=== PATIENT | female | born 1970 | race Caucasian/White ===

== ENCOUNTER 2017-04-28 20:10 | Emergency (ER) | payer MEDICAID ==
[2017-04-28] MEDS ORDERED: Albuterol/Ipratropium 3.0-0.5 MG/3 ML Neb Soln NEB ONE (20:49)
[2017-04-28] MEDS ORDERED: Budesonide 0.5 MG/2 ML Neb Susp NEB ONE (20:50)
[2017-04-28] MEDS ORDERED: methylPREDNISolone Sodium Succinate 125 MG/2 ML SDV IVPUSH ONE (20:50)
[2017-04-28] MEDS ORDERED: methylPREDNISolone Sodium Succinate 125 MG/2 ML SDV IM ONE (20:52)
[2017-04-28 21:46] VITALS: BP 157/90
--- NOTE | 2017-04-28 21:50 | EDM.PDOC ---
ED HPI GENERAL MEDICAL PROBLEM - General Chief Complaint: Respiratory Problem Stated Complaint: SOB Time Seen by Provider: 04/28/17 20:41 Source of Information: Reports: Patient History Limitations: Reports: No Limitations - History of Present Illness INITIAL COMMENTS - FREE TEXT/NARRATIVE: This patient comes in with an asthma exacerbation. She has long-standing asthma. She's been moving lately and thinks it may have sort of exacerbated it. 2 weeks ago she finished an 18 day course of prednisone. So presently she is taking [address] and then albuterol. She uses the albuterol at 2 AM this morning and then again at 3 PM but hasn't used more than that. She said she is very short of breath right now. 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 ED EXAM, GENERAL - Physical Exam Exam: See Below Exam Limited By: No Limitations General Appearance: Alert, WD/WN, Mild Distress Eye Exam: Bilateral Eye: Normal Inspection Throat/Mouth: Normal Inspection Respiratory/Chest: Other (Scattered wheezes in all paige with decreased air movement there is some prolonged expiration.) Cardiovascular: Regular Rate, Rhythm, No Murmur Extremities: Normal Inspection Neurological: Alert, Oriented Psychiatric: Normal Affect Skin Exam: Warm, Dry Course - Vital Signs Last Recorded V/S: Last Vital Signs Temp 37.4 C 04/28/17 20:34 Pulse 79 04/28/17 20:34 Resp 20 04/28/17 20:34 BP 162/94 H 04/28/17 20:34 Pulse Ox 98 04/28/17 20:34 - Orders/Labs/Meds Orders: Active Orders 24 hr Category Date Time Status RT Aerosol Therapy [RC] ASDIRECTED Care 04/28/17 20:50 Active Meds: Medications Discontinued Medications Generic Name Dose Route Start Last Admin Trade Name Jairq PRN Reason Stop Dose Admin Albuterol/Ipratropium 3 ml 04/28/17 20:49 04/28/17 21:13 Duoneb 3.0-0.5 Mg/3 Ml NEB 04/28/17 20:50 3 ml ONETIME ONE Administration Budesonide 0.5 mg 04/28/17 20:50 04/28/17 21:28 Pulmicort NEB 04/28/17 20:51 0.5 mg ONETIME ONE Administration Methylprednisolone Sodium Succinate 125 mg 04/28/17 20:50 Solu-Medrol IVPUSH 04/28/17 20:51 ONETIME ONE Methylprednisolone Sodium Succinate 125 mg 04/28/17 20:52 04/28/17 21:12 Solu-Medrol IM 04/28/17 20:53 125 mg ONETIME ONE Administration - Re-Assessments/Exams Free Text/Narrative Re-Assessment/Exam: 04/28/17 21:44 The patient received Solu-Medrol 125 mg IM and a nebulizer treatment with DuoNeb followed by Pulmicort.. She was reexamined after this and she is completely free of any wheezing and obviously moving air well Departure - Departure Time of Disposition: 21:50 Disposition: Home, Self-Care 01 Condition: Fair Clinical Impression: Exacerbation of asthma - Discharge Information Referrals: Coco Angela, [employer] [Primary Care Provider] - Additional Instructions: Continue using your inhalers. Note that you may use the albuterol 2 puffs every 4 hours that scan of the standard treatment. You may also use it more often than this if needed but realized that if you're having to do that then you need to be rechecked either by your DrKarissa or in the emergency department. Take the prednisone as directed. It starts off 40 mg daily and then tapers down your Dr. may want to keep you on this prednisone for a longer period. Start the prednisone in the morning. You received an injection of methylprednisolone in the ER and that's almost identical to prednisone. Please see your doctor in the morning. Since you're having repeated episodes your Dr. may want to start you on one of the other preventative medications in addition to what you're already on. Return to the ER at any time if needed - My Orders Last 24 Hours: My Active Orders 04/28/17 20:50 RT Aerosol Therapy [RC] ASDIRECTED - Assessment/Plan Last 24 Hours: My Active Orders 04/28/17 20:50 RT Aerosol Therapy [RC] ASDIRECTED
== END 2017-04-28 22:00 | disposition home or self-care (01) ==
LOC: JP.ED 20:10
DX: J45.901 Unspecified asthma with (acute) exacerbation (principal); E03.9 Hypothyroidism, unspecified; Z79.899 Other long term (current) drug therapy; Z91.09 Other allergy status, other than to drugs and biological substances
CPT/HCPCS: 94640; 96372; 96374; 99285; J2930; J7620; 99284